=== PATIENT | male | born 1970 | race Caucasian/White ===

== ENCOUNTER 2016-12-08 04:35 | Emergency (ER) | payer OTHER ==
[~2016-12-08] VITALS: Ht 175.3 cm; Wt 88.5 kg
--- NOTE | 2016-12-08 05:04 | ED HAND/WRIST INJURY COMPLAINT ---
History of Present Illness General Chief Complaint: Hand or Wrist Injury Stated Complaint: LT HAND PAIN PAIN S/P INJURY WITH WALL Source: patient, family Exam Limitations: no limitations Vital Signs & Intake/Output Vital Signs & Intake/Output Vital Signs Date Time Temp Pulse Resp B/P Pulse O2 O2 Flow FiO2 Ox Delivery Rate 12/08 0519 Room Air 12/08 0507 98.4 105 18 124/83 97 Room Air Allergies Coded Allergies: No Known Allergies (12/08/16) Reconcile Medications Zolpidem Tartrate (Ambien) 5 MG TABLET 1 TAB PO QPMP SLEEP (Reported) Triage Nurses Notes Reviewed? yes HPI: Since this is carrying a box last night and accidentally burning his left hand into the corner of wall. Positive pain and swelling. Pain radiates into his fourth and fifth fingers. The pain is throbbing in nature. The pain increases with movement of his hand. At its worst the pain is 6 out of 10. Eyes any other injury. Past History Medical History Any Pertinent Medical History? none Surgical History Surgical History: non-contributory Psychosocial History Tobacco Use: Never used ETOH Use: occasional use Illicit Drug Use: denies illicit drug use Family History Hx Contributory? No Review of Systems Review of Systems Constitutional: Reports: no symptoms. Respiratory: Reports: no symptoms. Cardiovascular: Reports: no symptoms. GI: Reports: no symptoms. Musculoskeletal: Reports: see HPI. Neurological/Psychological: Reports: no symptoms. Immunologic/Allergic: Reports: no symptoms. Physical Exam Physical Exam General Appearance: well developed/nourished, alert, awake, mild distress Head: atraumatic, normal appearance Eyes: Bilateral: PERRL, EOMI. Ears, Nose, Throat: normal pharynx, normal ENT inspection Neck: normal inspection, supple, full range of motion Cardiovascular/Respiratory: normal breath sounds, normal peripheral pulses, regular rate/rhythm, no respiratory distress Wrist Left: normal range of motion, normal inspection Wrist Right: normal range of motion, normal inspection Hand Left: ecchymosis, evidence of injury, swelling Hand Right: normal inspection, normal range of motion Neurologic/Tendon: normal sensation, normal motor functions, normal tendon functions Skin: intact, normal color, warm/dry Progress Differential Diagnosis: contusion, fracture, sprain Plan of Care: Orders Procedure Date/time Status XRY-HAND, 3 View LEFT 12/08 0504 Active Diagnostic Imaging: Viewed by Me: Radiology Read. Discussed w/RAD: Radiology Read. Radiology Impression: BOXERS FRACTURE Departure Departure Disposition: HOME OR SELF CARE Condition: Stable Clinical Impression Primary Impression: Boxer's fracture Qualifiers: Encounter type: initial encounter Fracture type: closed Qualified Code: S62.309A - Unspecified fracture of unspecified metacarpal bone, initial encounter for closed fracture Referrals: KATERYNA VORA,FATOU LIND MD,EPHRAIM Allen (PCP/Family) Additional Instructions: KEEP SPLINT ON FOLLOW UP WITH DR. DISHA COLLINS FOR ANY CONCERNS Departure Forms: Customer Survey General Discharge Information Prescriptions: Current Visit Scripts Oxycodone HCl/Acetaminophen (Percocet 5-325 MG Tablet) 1-2 TAB PO Q6P PRN PAIN #20 TAB Procedures Splinting Location: LEFT HAND Manual Alignment Performed: Yes Hand-Made Type: orthoglass Splint: ulnar Splint Applied By: splint applied by me Pre-Proc Neuro Vasc Exam: normal Post-Proc Neuro Vasc Exam: normal
[2016-12-08] MEDS ORDERED: AMBIEN5 M1 PO (05:06)
[2016-12-08 05:07] VITALS: BP 124/83
[2016-12-08] MEDS ORDERED: PERCOCET 5-3251 EACH PO (05:42)
--- NOTE | 2016-12-08 06:22 | RADIOLOGY REPORT ---
EXAMINATION: XR HAND, LEFT CLINICAL INFORMATION: Pain status post fall. Trauma. COMPARISON: No relevant prior imaging is available. TECHNIQUE: AP, lateral, and oblique views of the left hand. FINDINGS: There is an oblique fracture of the fifth metacarpal of the left hand with subtle radial and volar displacement of the distal fragment. There is no dislocation. Joint spaces are maintained. Proximal and distal carpal rows are intact. There is neutral ulnar variance. Soft tissues are unremarkable. IMPRESSION: Acute oblique fracture through the fifth metacarpal of the left hand.
== END 2016-12-08 05:50 ==
LOC: ERH 04:35
DX: S62.309A Unspecified fracture of unspecified metacarpal bone, initial encounter for closed fracture (principal); W22.01XA Walked into wall, initial encounter; Y93.89 Activity, other specified; Y92.9 Unspecified place or not applicable
CPT/HCPCS: 73130-LT